=== PATIENT | female | born 1955 | race Caucasian/White ===

== ENCOUNTER 2017-12-07 14:03 | Inpatient (IN) ==
--- NOTE | 2017-12-06 23:00 | Discharge Summary ---
<GeraldineNanette E - Last Filed: 12/06/17 22:57> Date of Encounter: 12/06/17 - Discharge Diagnosis (1) Arthritis of right knee Priority: Primary Status: Chronic (2) Status post total right knee replacement Priority: Primary Status: Acute (3) Obesity Priority: Secondary Status: Chronic Qualifiers: Obesity type: unspecified obesity type Obesity classification: unspecified obesity classification Serious obesity comorbidity presence: unspecified whether serious comorbidity present Qualified Code(s): E66.9 - Obesity, unspecified (4) Hypothyroid Priority: Secondary Status: Chronic Qualifiers: Hypothyroidism type: unspecified Qualified Code(s): E03.9 - Hypothyroidism , unspecified (5) Hypertension Priority: Secondary Status: Chronic Qualifiers: Hypertension type: unspecified Qualified Code(s): I10 - Essential (primary ) hypertension - Hospital Course Hospital course: Ms. Christensen is a 61 year old female - Time Spent with Patient Total time spent providing and/or coordinating discharge services: - Discharge Medications Home Medications: Aspirin Enteric Coated [Aspirin EC] 325 mg PO BID 10 Days #20 tablet. [Rx] OxyCODONE Immed Rel [Roxicodone 5 MG] 5 mg PO Q6HR PRN 7 Days #28 tablet [Rx] Aspirin [Lo-Dose Aspirin EC] 81 mg PO DAILY 12/07/17 [History] Cholecalciferol (D-3) [Vitamin D] 2,000 unit PO DAILY 12/07/17 [History] Fluticasone Propionate Nasal [Flonase] 2 spr NS DAILY PRN 12/07/17 [History] Levothyroxine Sodium [Levo-T] 125 mcg PO DAILY 12/07/17 [History] Metoprolol [Lopressor] 25 mg PO BID 12/07/17 [History] Pregabalin [Lyrica] 100 mg PO BID 12/07/17 [History] traZODone [TraZODone] 50 mg PO HS 12/07/17 [History] Allergies/Adverse Reactions: 3 Allergy/AdvReac Type Severity Reaction Status Date / Time lisinopril Allergy Muscle Pain Verified 12/02/17 15:08 Primary care physician: Joseph Medley MD - Patient Status Disposition: Home, Self-Care Condition: Good - Discharge Instructions Follow Up With: Joseph Medley MD [Primary Care Provider] - <Chicho Fatima - Last Filed: 12/08/17 06:56> Orders not resulted at time of discharge: Pending orders 12/07/17 01:00 XR knee RT limited 1-2V [XR] Routine Hemoglobin and Hematocrit [HEME] Routine Date of Encounter: 12/08/17 Time of Encounter: 06:55 - Discharge Diagnosis (1) Obesity (BMI 30.0-34.9) Priority: Secondary Status: Chronic (2) Arthritis of right knee Priority: Primary Status: Chronic (3) Status post total right knee replacement Priority: Primary Status: Acute (4) Hypothyroid Priority: Secondary Status: Chronic Qualifiers: Hypothyroidism type: unspecified Qualified Code(s): E03.9 - Hypothyroidism , unspecified (5) Hypertension Priority: Secondary Status: Chronic Qualifiers: Hypertension type: unspecified Qualified Code(s): I10 - Essential (primary ) hypertension - Hospital Course Hospital course: Ms. Christensen is a 61 year old female Status post left total knee replacement The patient had an uneventful postoperative course. They received antibiotics and physical therapy and were discharged in stable condition. There will follow -up in the office in 2 weeks. - Time Spent with Patient Total time spent providing and/or coordinating discharge services: Primary care physician: Joseph Medley MD - Patient Status Functional capacity at discharge: uses cane/walker Overall status at discharge: patient is progressing back to baseline
[2017-12-07] MEDS ORDERED: CeFAZolin Syr 2,000MG/20 ML 2,000 MG/20 ML SYRINGE IVPB ONE (14:21)
[2017-12-07] MEDS ORDERED: Ringers Solution, Lactated 500 ML IVC SCH (14:30)
--- NOTE | 2017-12-07 14:42 | History & Physical Report ---
Date of Encounter: 12/07/17 Time of Encounter: 14:42 24 Hour HP Update - Instructions Instructions: If the History and Physical is less than 30 days old and was completed prior to A.M. admission and or procedure and has NOT been updated on calendar day of procedure please complete this update prior to performing procedure. - Update Patient reports changes in Medical Condition: No Changes in examination, assessment, or condition: No Changes in Medication: No Preop tests/diagnostics Reviewed: Yes Surgery Remains Indicated: Yes Consent for Planned Operative Procedure(s) Verified: Yes - Pre-Operative Checklist Preoperative Checklist Indicated: No Prophylactic Antibiotic Ordered: Yes Is VTE Prophylaxis Indicated?: Yes
--- NOTE | 2017-12-07 14:53 | Anesthesia Evaluation PreOp ---
Date of Encounter: 12/07/17 Time of Encounter: 14:51 - Past History Planned Operation: Right Total Knee Arthroplasty Cardiac History: HTN, Hyperlipidemia Pulmonary History: Former smoker (quit 2006) MANAGER MAIL History: Denies Any Significant HX Other Medical History: Thyroid (Hypo), GERD Anesthesia History: No Prior Anesthetic Complications, Past Anesthesia (GB, SHELBI , R. CTR, Brain Sx) : No Alcohol Use: none Drug use: none Medications and Allergies Aspirin Enteric Coated [Aspirin EC] 325 mg PO BID 10 Days #20 tablet. [Rx] OxyCODONE Immed Rel [Roxicodone 5 MG] 5 mg PO Q6HR PRN 7 Days #28 tablet [Rx] Aspirin [Lo-Dose Aspirin EC] 81 mg PO DAILY 12/07/17 [History] Cholecalciferol (D-3) [Vitamin D] 2,000 unit PO DAILY 12/07/17 [History] Fluticasone Propionate Nasal [Flonase] 2 spr NS DAILY PRN 12/07/17 [History] Levothyroxine Sodium [Levo-T] 125 mcg PO DAILY 12/07/17 [History] Metoprolol [Lopressor] 25 mg PO BID 12/07/17 [History] Pregabalin [Lyrica] 100 mg PO BID 12/07/17 [History] traZODone [TraZODone] 50 mg PO HS 12/07/17 [History] 3 Allergy/AdvReac Type Severity Reaction Status Date / Time lisinopril Allergy Muscle Pain Verified 12/02/17 15:08 - Meds/Allergy Pre-op Review Medications Reviewed: Yes Allergies Reviewed: Yes Beta Blockers on Current Med List: Yes If Beta Blockers taken, Date/Time (Last Dose taken): 229912/06/2017 Anesthesia Results - Labs Laboratory Tests 12/02/17 12/02/17 12/02/17 15:26 15:26 15:26 WBC 7.8 RBC 4.77 Hct 43.6 Plt Count 282 INR 1.0 Sodium 137 Potassium 3.9 Chloride 101 Carbon Dioxide 27 BUN 21 Creatinine 0.72 - Imaging EKG: report reviewed (SINUS RHYTHM BORDERLINE LEFT AXIS DEVIATION LOW QRS VOLTAGE IN PRECORDIAL LEADS PATTERN CONSISTENT WITH PULMONARY DISEASE INCOMPLETE RIGHT BUNDLE BRANCH BLOCK) Anesthesia Exam O2 Sat Height 1.56 m Height 1.56 m Weight 83.461 kg Weight 83.461 kg O2 Sat by Pulse Oximetry 95 Vital Signs Temp Pulse Resp BP Pulse Ox 97.4 F L 82 18 142/89 95 12/07/17 14:31 12/07/17 14:31 12/07/17 14:31 12/07/17 14:31 12/07/17 14:31 NPO (# of Hours): > 8 hrs Pain Scale: 0 Pain Scale Used: Numeric (1 - 10) - HEENT Pupil (Motor): Pupils equal, EOMI Mallampati: III Teeth: Normal Oral Opening: Greater than 3 - MANAGER MAIL LOC: Oriented MANAGER MAIL Motor: Normal RUE, Normal LUE, Normal RLE, Normal LLE, Normal Face MANAGER MAIL Sensory: Normal: RUE, LUE, RLE, LLE, Face - Cardiac Rhythm: Regular Murmur: None JVD: No Carotid Bruit: No - Pulmonary Breath Sounds: bilateral Clear Respiratory Effort: Symmetrical Anesthesia Assess/Plan ASA Score: 2 Modified [place] Scale for Level of Consciousness: Cooperative, oriented, and tranquil Anesthetic Plan: General, Regional, MAC Autologous Blood: Yes Monitoring Plan: Standard Monitors Recovery Plan: PACU
[2017-12-07] MEDS ORDERED: ROPIVACAINE HCL/PF 0.5% 30 ML VIAL ONE (16:30)
[2017-12-07] MEDS ORDERED: Lidocaine -MPF 1% 5 ML AMPUL ONE (16:36)
[2017-12-07] MEDS ORDERED: *HR* Midazolam HCl 2 MG/2 ML VIAL ONE (16:57)
[2017-12-07] MEDS ORDERED: *HR* FentaNYL (PF) 100 MCG/2 ML VIAL ONE (16:57)
[2017-12-07] MEDS ORDERED: *HR* Propofol 200 MG/20 ML VIAL IVP ONE ×2 (17:07→17:08)
--- NOTE | 2017-12-07 17:07 | Anesthesia Procedures ---
Date of Encounter: 12/07/17 Time of Encounter: 16:36 Procedures: Anesthesia - Epidural/Spinal Patient ID/Chart reviewed: Yes Patient examined: Yes Consent Obtained: Yes Supplemental Oxygen: None/Room Air Site Prep: Aseptic Technique, Sterile prep and drape, Povidone-Iodine 1% Patient position: upright Local Anesthetic: Lidocaine 1% Amount of Local Anesthetic used: 2 Blood: No CSF: Yes Paresthesia: No Spinal Needle Gauge: 25 Spinal Dose: 2 ml 0.5% bupivicaine with 0.25 mg duramorph Procedure: patient placed sitting, prepped and draped in a sterile manner, 1% lidocaine at skin L3/L4 level, 25 g ann-marie needle used for spinal, csf clear, no blood no paraesthesia, 2 ml 0.5% preservative free bupivicaine, with 0.25 mg duramorph used x 1 attempt. patient tolerated well, block performed by Néstor Carrillo CRNA Vitals + FHT's: see nurses notes for vitals
[2017-12-07] MEDS ORDERED: Ethanol\\Acetic Acid\\Na Ace\\Ben 1,000 ML IRRIG.SOLN IR ONE (17:09)
--- NOTE | 2017-12-07 17:10 | Anesthesia Procedures ---
Date of Encounter: 12/07/17 Time of Encounter: 16:45 Procedures: Anesthesia - Nerve Block Procedure Date: 12/07/17 Time: 16:45 Allergies/Adv Reactions: lisinopril Pre-op Diagnosis: right knee arthritis Surgical Procedure: right total knee Checklist: Correct Patient Identifier, Correct procedure, History checked (with Néstor Carl CRNA) Correct side: Right Blood Thinner: No Monitor Applied: EKG, BP, Pulse Oximetry Indication: Post Op Analgesia Pre-op Neuro Deficits: No Block Type: Other (adductor canal block) Catheter placed: No Sterile Technique: Yes Ultrasound used: Yes Anatomy identified: Yes Visual spread of Local: Yes Neuro Stimulation: No Blood on Needle Aspiration: No Smooth Injection of Local: Yes Pain with Injection of Local: No Prep: Chlorhexadine Needle: 22 x 50 mm Stimuplex Local: Ropivacaine (0.5% with 8 mg decadron) Volume (cc): 30 Number of Attempts: 1 Complications: None/effective block Vitals: see nurses notes for vitals, patient tolerated well Comments: block performed by Néstor CARL CRNA
[2017-12-07] MEDS ORDERED: *HR* Enoxaparin 30 MG/0.3 ML SYRINGE SQ SCH (18:00)
[2017-12-07] MEDS ORDERED: *HR* PHENYLEPHRINE 1,000 MCG/10 ML SYRINGE IVP ONE (18:16)
--- NOTE | 2017-12-07 18:25 | Orthopedic Operative Note ---
Date of procedure: 12/07/17 Pre-op diagnosis: Right knee arthritis Post-op diagnosis: same Procedure: Procedure: Right robotic-assisted Total knee replacement Estimated blood loss: 200 cc Hardware: Metal and polyethylene replacement. [place] Femur: 3 Tibia: 3 PS insert: 11 Patella: 36 Exam Under anesthesia: 16 degrees of hyperextension 4 degrees of varus as calculated by the robot full flexion and no instability Procedural Notes: Grade 4 arthritic changes all 3 compartments. Operative procedure: The patient was brought to the operating room and placed on the operating room table. After general anesthesia was administered the operative knee was examined. Findings were noted in the exam under anesthesia. The operative extremity was prepped and draped in sterile surgical fashion. The patient received IV antibiotics prior to skin incision. A standard midline incision was made centered over the patella. The incision was made through the skin and subcutaneous tissue. A medial parapatellar tendon approach was performed. Care was taken to preserve tissue along the medial aspect of the patella. And to protect the patella tendon. The deep MCL was released off the medial tibia. The infra patella fat pad was excised. The patella was everted and cut was made at the level of the insertion of the quadriceps and patella tendon. The patella was sized to a 36 the guide was seated and the lug holes are drilled. Knee was brought into flexion. Patient noted to have grade 4 arthritic changes all 3 compartments. Steinmann pins were placed in the tibia and the femur for the tibial and femoral arrays respectively. Checkpoints were also placed in the tibia and the femur for calculation purposes. The knee including the femur and the tibial registered. Osteophytes, ACL and PCL were excised at this point. Extension and flexion were assessed with a valgus stress components were adjusted on the computer to balance the knee. Femoral cuts were made first with robotic assistance, these included the anterior cut posterior cuts chamfer cuts. Tibial cut was then performed with robotic assistance as well. Bone fragments were removed, as well as the medial and lateral meniscus. The size 3 femoral guide was seated box cut was made lug holes are drilled. The size 3 tibial tray was seated and prepared with the fin cutter. Trial reduction with the 11 TS Brittany revealed extension of 0 degree and 2 degree varus full flexion. No varus valgus instability. Trial reduction revealed excellent patella tracking. All trial components were removed all bony surfaces were irrigated. The Tibia was seated followed by the femur, The Brittany size 11 was seated and secured patella. Patient had similar findings for motion and stability. The knee was closed by the PA. The knee was then irrigated out with 2 L of pulse irrigation. The extensor mechanism was closed with #2 FiberWire suture and #2 PDS suture. The subcutaneous tissue was then irrigated and closed deep with #1 PDS suture superficially with 0 PDS suture and skin was closed with zip tie The patient was then placed in a sterile dressing and a postoperative brace extubated and transferred to recovery room in stable condition. Anesthesia: GETA Surgeon: Chicho Fatima Was there an animal assistant present: Yes Assistant Director Of Plant Operations: Julia Peterson Estimated blood loss (cc): 200 Condition: stable Disposition: PACU
[2017-12-07 19:22] LABS: Hematocrit 44.3 % (35.3-44.9); Hemoglobin 14.4 g/dL (11.5-15.4)
[2017-12-07] MEDS ORDERED: *HR* OxyCODONE Immed Rel 5 MG TABLET PO PRN (19:56)
[2017-12-07] MEDS ORDERED: MOM Conc 10 ML UD.LIQ PO PRN (19:56)
[2017-12-07] MEDS ORDERED: Ondansetron 4 MG/2 ML VIAL IVP PRN (19:56)
[2017-12-07] MEDS ORDERED: traMADol 50 MG TABLET PO PRN (19:56)
[2017-12-07] MEDS ORDERED: Fluticasone Propionate Nasal 50 MCG/SPRAY BOTTLE NS PRN (19:56)
[2017-12-07] MEDS ORDERED: Sennosides 8.6 MG TABLET PO PRN (19:56)
[2017-12-07] MEDS ORDERED: Temazepam 15 MG CAPSULE PO PRN (19:56)
[2017-12-07] MEDS ORDERED: Naloxone 0.4 MG/ML INJ IVP PRN (19:56)
[2017-12-07] MEDS ORDERED: Ringers Solution, Lactated 1,000 ML IVC SCH (19:56)
[2017-12-07] MEDS ORDERED: *HR* OxyCODONE/APAP 5/325 TABLET PO PRN (19:56)
[2017-12-07] MEDS: Pregabalin 50 MG CAPSULE PO SCH (20:24)
[2017-12-07] MEDS ORDERED: traZODone 50 MG TABLET PO SCH (21:00)
--- NOTE | 2017-12-07 21:35 | Anesthesia Evaluation Post Op ---
Date of Encounter: 12/07/17 Time of Encounter: 19:30 - Vital Signs Vital Signs: Vital Signs/O2 Sat/Glucose, Most Current Temp Pulse Resp BP Pulse Ox 12/07/17 19:25 98.6 F 70 18 136/76 95 12/07/17 19:15 74 18 140/79 96 12/07/17 19:05 64 16 139/82 97 12/07/17 18:55 97.8 F 64 16 144/86 96 - Lungs Lungs: Clear Ascult./Percussion - Airway Airway: Non-obstructed - Cardiovascular Regular Rate - Mental Status Mental Status: Alert & Oriented, Answers Appropriately - Pain Pain Scale: 0 Pain Scale used: Megan (Faces) - Nausea Vomiting Nausea Vomiting: Not Present - Hydration Hydration: Tolerates oral liquids, Has not voided - Discharge PostOp Status: Transfer Patient to floor Anes Supervising Prov Stmt: Pt seen/evaluated, VSS and pt has met criteria for discharge to floor. - MD Ramos
[2017-12-08 01:26] LABS: Hematocrit 40.1 % (35.3-44.9)
[2017-12-08 01:44] LABS: BUN/Creatinine Ratio 21 (6-26); Blood Urea Nitrogen 17 mg/dL (8-23); Calcium 9.2 mg/dL (8.6-10.3); Carbon Dioxide 24 mEq/L (23-29); Chloride 107 mEq/L (98-107); Glucose 189 mg/dL (70-105); Osmolality,Calculated 295 (280-300); Potassium 4.3 mEq/L (3.5-5.1); Sodium 139 mEq/L (136-145); eGFR For African Americans > 60 (> 60); eGFR For Non-African Americans > 60 (> 60)
[2017-12-08] MEDS ORDERED: *HR* Enoxaparin 30 MG/0.3 ML SYRINGE SQ SCH (06:00)
--- NOTE | 2017-12-08 06:56 | Orthopedics Progress Note ---
Date of Encounter: 12/08/17 Time of Encounter: 06:56 - Assessment and Plan (1) Obesity (BMI 30.0-34.9) Current Visit: Yes Status: Chronic (2) Arthritis of right knee Current Visit: No Status: Chronic (3) Status post total right knee replacement Current Visit: No Status: Acute (4) Hypothyroid Current Visit: No Status: Chronic Qualifiers: Hypothyroidism type: unspecified Qualified Code(s): E03.9 - Hypothyroidism , unspecified (5) Hypertension Current Visit: No Status: Chronic Qualifiers: Hypertension type: unspecified Qualified Code(s): I10 - Essential (primary ) hypertension Subjective Interval history: Patient was seen this morning doing well without complaints. Afebrile vital signs stable. Operative extremity: Neurovascularly intact Dressing clean dry and intact Calves nontender Assessment and plan: Continue with postoperative care Hematocrit 40 discharged today Objective Vital signs: Vital Signs Temp Pulse Resp BP Pulse Ox 12/08/17 03:55 97.6 F 72 16 110/71 96 12/07/17 23:48 97.7 F 70 18 121/75 97 12/07/17 19:55 98.4 F 64 16 131/81 95 12/07/17 19:25 98.6 F 70 18 136/76 95 12/07/17 19:15 74 18 140/79 96 12/07/17 19:05 64 16 139/82 97 12/07/17 18:55 97.8 F 64 16 144/86 96 12/07/17 16:50 83 13 139/92 97 12/07/17 16:40 81 14 156/88 97 12/07/17 14:31 97.4 F L 82 18 142/89 95 Intake and Output 12/07/17 12/07/17 12/08/17 15:59 23:59 07:59 Intake Total 100 / 100 Output Total 200 / 200 400 / 400 Balance -100 / -100 -400 / -400 Intake: IV Fluids 100 / 100 Ancef 2,000 MG In 0.9 % Sodium 100 / 100 Chloride 100 ML @ 200 mls/hr IVPB Q8HR [facility] Rx#:[id number] Output: Urine 400 / 400 Estimated Blood Loss 200 / 200 Other: Weight 83.461 kg 84 kg Patient Weight 12/08/17 23:59 Weight 84 kg - Labs CBC & BMP: 12/08/17 00:50 12/08/17 00:50 Labs: Abnormal lab results Glucose 189 mg/dL (70-105) H 12/08/17 00:50 - VTE Documentation of Mechanical Device: Venous foot pump, device Consult Discharge Plan - Plan Referrals: Joseph Medley MD [Primary Care Provider] -
[2017-12-08] MEDS ORDERED: Aspirin Enteric Coated 81 MG Tablet PO SCH (09:00)
[2017-12-08] MEDS ORDERED: Cholecalciferol (D-3) 1,000 UNIT TABLET PO SCH (09:00)
[2017-12-08] MEDS: Pregabalin 50 MG CAPSULE PO SCH (09:47)
[2017-12-08 11:16] VITALS: BP 150/77
== END 2017-12-08 16:46 | disposition home or self-care (01) | DRG 470 ==
LOC: SAMDAY 14:03 → 3NENU 19:54
PROVIDERS: ADMIT Orthopaedic Surgery; ATTEND Orthopaedic Surgery